=== PATIENT | male | born 1970 | race Hispanic/Latino ===

== ENCOUNTER 2021-01-29 22:21 | Observation (INO) | payer SELFPAY ==
[~2021-01-29 22:21] MED LIST: Iopamidol-370 76% 500 ML 1 ML ONE
[2021-01-29 23:21] LABS: #Lymphocytes 1.4 thou/uL (1.20-3.40); #Monocytes 0.6 thou/uL (0.11-0.59); #Neutrophils 9.1 thou/uL (1.40-6.50); %Basophils 0.3 % (0.0-1.0); %Eosinophils 0.4 % (0.0-10.0); %Lymphocytes 12.5 % (21.0-51.0); %Monocytes 5.1 % (0.0-10.0); %Neutrophils 81.7 % (42.0-75.0); Mean Corpuscular HGB CONC 33.5 g/dL (32.0-36.0); Mean Corpuscular Hemoglobin 29.5 pg (27.0-31.0); Mean Corpuscular Volume 88.1 fL (78.0-98.0); Mean Platelet Volume 7.2 fL (7.4-10.4); Platelet Count 323 thou/uL (130-400); RBC Distribution Width 11.5 % (11.5-14.5); Red Blood Cell (RBC) Count 5.06 mill/uL (4.70-6.10); White Blood Cell (WBC) Count 11.1 thou/uL (4.8-10.8)
[2021-01-29 23:22] LABS: Bilirubin Negative (Negative); Blood, Urine Negative (Negative); Clarity Extra Turbid (Clear); Glucose, Urine (Dipstick) Normal (Negative); Ketone, Urine Negative (Negative); Leukocyte Negative Leu/uL (Negative); Nitrite Negative (Negative); Protein, Urine (Dipstick) 20 mg/dL (Neg-Trace); Urobilinogen Normal mg/dL (Less than 2)
[2021-01-29 23:23] LABS: ALT (SGPT) 60 U/L (8-55); AST (SGOT) 26 U/L (5-34); Albumin 4.3 g/dL (3.5-5.0); Alkaline Phosphatase 112 U/L (40-110); Anion Gap 11 mmol/L (10-20); BUN (Urea Nitrogen) 13 mg/dL (8.9-20.6); Bilirubin, Total 0.8 mg/dL (0.2-1.2); Calc. Creatinine Clearance 0 mL/min (70-130); Calcium 9.4 mg/dL (7.8-10.44); Carbon Dioxide 23 mmol/L (22-29); Chloride 107 mmol/L (98-107); Globulin 3.4 g/dL (2.4-3.5); Glucose 123 mg/dL (70-105); Lipase 26 U/L (8-78); Protein, Total 7.7 g/dL (6.0-8.3); Sodium 137 mmol/L (136-145)
[2021-01-30] MEDS ORDERED: Ondansetron PF 4 MG/2 ML Vial ONE ×2 (01:41→02:50)
[2021-01-30] MEDS ORDERED: Morphine 4 MG/ML VIAL ONE (01:41)
[2021-01-30] MEDS ORDERED: Morphine 4 MG/ML VIAL SLOW IVP PRN (03:32)
[2021-01-30 03:43] VITALS: BMI 31.8
[2021-01-30] MEDS ORDERED: Ondansetron ODT 4 MG TAB SL PRN (03:45)
[2021-01-30] MEDS ORDERED: Sodium Chloride 0.9% 1,000 ML IV SCH (03:45)
[2021-01-30] MEDS ORDERED: Ondansetron PF 4 MG/2 ML Vial IVP PRN (03:45)
[2021-01-30] MEDS ORDERED: Promethazine HCl 25 MG/ML VIAL IM PRN (06:30)
[2021-01-30] MEDS ORDERED: Scopolamine 1.5 mg/72 hour Patch TOP PRN (06:30)
[2021-01-30] MEDS ORDERED: Ketorolac Tromethamine 30 MG/ML VIAL IVP PRN (06:31)
[2021-01-30] MEDS ORDERED: Sodium Chloride 0.9% (PF) 10 ML VIAL FS PRN (06:45)
[2021-01-30 08:26] LABS: SARS-CoV-2 NAA Rapid Test Not Detected (NotDetected)
[2021-01-30] MEDS ORDERED: Pantoprazole 40 MG VIAL IVP SCH (09:00)
[2021-01-30] MEDS: Lactated Ringer's 1,000 ML IV SCH ×2 (10:00→16:52)
[2021-01-30 16:09] VITALS: BP 125/82; TEMP 97.7
[2021-01-30] MEDS ORDERED: Enoxaparin Sodium 40 MG/0.4 ML SYRINGE SC SCH (21:00)
== END 2021-01-30 18:23 | disposition home or self-care (01) ==
LOC: ERS 22:21 → SURG A 01-30 02:12
PROVIDERS: ADMIT Specialist; ATTEND Specialist
DX: K63.89 Other specified diseases of intestine (principal); K76.0 Fatty (change of) liver, not elsewhere classified; K42.9 Umbilical hernia without obstruction or gangrene; I10 Essential (primary) hypertension; Z20.822 Contact with and (suspected) exposure to COVID-19
CPT/HCPCS: 36415; 74018; 74177; 74250; 80053; 81003; 83690; 85025; 96374; 96375; 96376; C9113; G0378; J2270; J2405; Q9967; U0002; U0005